=== PATIENT | female | born 1985 | race African-American/Black ===

== ENCOUNTER 2024-06-04 16:27 | Emergency (ER) | payer MEDICARE, OTHER ==
[2024-06-04 16:52] VITALS: TEMP 98
[2024-06-04] MEDS: KETOROLAC 15 MG/ML 1 ML VIAL IM STA (20:01)
[2024-06-04] MEDS: LIDOCAINE 1% INJ 10MG/ML (20 ML MDV) SQ ONE (20:02)
--- NOTE | 2024-06-04 20:35 | ED ---
General Adult HPI - General Chief complaint: Skin/Abscess/Foreign Body Stated complaint: Abbcess Time Seen by Provider: 06/04/24 18:12 Source: patient Mode of arrival: ambulatory Limitations: no limitations - History of Present Illness Initial comments: 38-year-old female presenting chief complaint of abscess to [facility]. She first noticed it about a week ago. Patient does have history of pilonidal abscesses. No fevers or chills. No nausea or vomiting. Abscess has not opened or drained yet. - Related Data Previous Rx's Medication Instructions Recorded Cephalexin [Keflex] 500 mg PO Q6HR 7 Days #28 cap 06/04/24 Sulfamethox-Tmp 800-160Mg [Bactrim 1 tab PO Q12HR 7 Days #14 tab 06/04/24 DS 800-160 mg] Allergies Allergy/AdvReac Type Severity Reaction Status Date / Time lisinopril Allergy Anaphylaxis Verified 06/04/24 16:53 Review of Systems ROS Statement: Those systems with pertinent positive or pertinent negative responses have been documented in the HPI. ROS Other: All systems not noted in ROS Statement are negative. Past Medical History Past Medical History: Diabetes Mellitus Additional Past Medical History / Comment(s): type 1 History of Any Multi-Drug Resistant Organisms: None Reported Additional Past Surgical History / Comment(s): gastric sleeve, abdominoplasty. Past Psychological History: No Psychological Hx Reported Smoking Status: Current every day smoker Past Alcohol Use History: None Reported Past Drug Use History: Marijuana General Exam Limitations: no limitations General appearance: alert, in no apparent distress Head exam: Present: atraumatic, normocephalic Eye exam: Present: normal appearance, EOMI Neck exam: Present: normal inspection. Absent: meningismus Respiratory exam: Absent: respiratory distress Neurological exam: Present: alert, oriented X3 Psychiatric exam: Present: normal affect, normal mood Expanded Type of lesion: Present: abscess (Pilonidal abscess) Course Vital Signs 06/04/24 06/04/24 16:50 20:44 Temperature 98 F Pulse Rate 107 H 96 Respiratory 18 16 Rate Blood Pressure 104/73 110/78 O2 Sat by Pulse 98 99 Oximetry Procedures - Incision & Drainage Consent Obtained: verbal consent Site: buttock Anesthetic Used: lidocaine 1%, without epi Scalpel Used: #11 I&D Drainage Obtained: Pus, Blood Patient Tolerated Procedure: well Medical Decision Making - Medical Decision Making Was pt. sent in by a medical professional or institution (CHARLES Escalante, HRIS ANALYST, urgent care, hospital, or assisted...) When possible be specific @ -No Did you speak to anyone other than the patient for history (EMS, parent, family, police, friend...)? What history was obtained from this source @ -No Did you review nursing and triage notes (agree or disagree)? Why? @ -I reviewed and agree with nursing and triage notes Were old charts reviewed (outside hosp., previous admission, EMS record, old EKG, old radiological studies, urgent care reports/EKG's, assisted records)? Report findings @ -No old charts were reviewed Differential Diagnosis (chest pain, altered mental status, abdominal pain women, abdominal pain men, vaginal bleeding, weakness, fever, dyspnea, syncope, headache, dizziness, GI bleed, back pain, seizure, CVA, palpatations, mental health, musculoskeletal)? @ -Differential includes abscess, cellulitis, allergic reaction, this is not an all-inclusive list EKG interpreted by me (3pts min.). @ -As above X-rays interpreted by me (1pt min.). @ -None done CT interpreted by me (1pt min.). @ -None done U/S interpreted by me (1pt. min.). @ -None done What testing was considered but not performed or refused? (CT, X-rays, U/S, labs)? Why? @ -None What meds were considered but not given or refused? Why? @ -None Did you discuss the management of the patient with other professionals (professionals i.e. CHARLES Escalante, HRIS ANALYST, lab, RT, psych nurse, licensed master social worker, umbrella tipper hand, teacher, founder and chief technical officer, high risk case manager)? Give summary @ -No Was smoking cessation discussed for >3mins.? @ -No Was critical care preformed (if so, how long)? @ -No Were there social determinants of health that impacted care today? How? (Homelessness, low income, unemployed, alcoholism, drug addiction, transportation, low edu. Level, literacy, decrease access to med. care, [facility], rehab)? @ -No Was there de-escalation of care discussed even if they declined (Discuss DNR or withdrawal of care, Hospice)? DNR status @ -No What co-morbidities impacted this encounter? (DM, HTN, Smoking, COPD, CAD, Cancer, CVA, ARF, Chemo, Hep., AIDS, mental health diagnosis, sleep apnea, morbid obesity)? @ -None Was patient admitted / discharged? Hospital course, mention meds given and rout e, prescriptions, significant lab abnormalities, going to OR and other pertinent info. @ -38-year-old female presenting with chief complaint of pilonidal abscess. The wound is anesthetized with 1% lidocaine. Incision and drainage is performed. Large amount of pus and blood expressed. Wound is covered with gauze. Patient is started on Keflex and Bactrim. She is educated on today's findings and wound care. Educated on signs of infection. Discharged. Follow- up with PCP. Report back to ER with any new or worsening symptoms. Discussed return parameters and answered all questions. Patient conveyed verbal understanding and agreed to the plan. I discussed this case in detail with my attending Dr. Wall Undiagnosed new problem with uncertain prognosis? @ -No Drug Therapy requiring intensive monitoring for toxicity (Heparin, Nitro, Insulin, Cardizem)? @ -No Were any procedures done? @ -Incision and drainage Diagnosis/symptom? @ -Abscess Acute, or Chronic, or Acute on Chronic? @ -Acute Uncomplicated (without systemic symptoms) or Complicated (systemic symptoms)? @ -Uncomplicated Side effects of treatment? @ -No Exacerbation, Progression, or Severe Exacerbation? @ -No Poses a threat to life or bodily function? How? (Chest pain, USA, MD, pneumonia, PE, COPD, DKA, ARF, appy, cholecystitis, CVA, Diverticulitis, Homicidal, Suicidal, threat to staff... and all critical care pts) @ -No Disposition Clinical Impression: Pilonidal abscess Disposition: HOME SELF-CARE Condition: Good Instructions (If sedation given, give patient instructions): Pilonidal Cyst (ED) Additional Instructions: Follow-up with PCP. Report back to ER with any new or worsening symptoms. Prescriptions: Sulfamethox-Tmp 800-160Mg [Bactrim DS 800-160 mg] 1 tab PO Q12HR 7 Days #14 tab Cephalexin [Keflex] 500 mg PO Q6HR 7 Days #28 cap Is patient prescribed a controlled substance at d/c from ED?: No Referrals: None,Stated [Primary Care Provider] - 1-2 days Time of Disposition: 20:35
[2024-06-04 20:45] VITALS: BP 110/78; PULSE 96; RESP 16
== END 2024-06-04 21:12 | disposition home or self-care (01) ==
LOC: EC 16:27
CPT/HCPCS: 10080; 96372; 99283

== ENCOUNTER 2024-09-02 10:34 | Inpatient (IN) | payer MEDICARE, MEDICAID ==
[2024-09-02] MEDS: HALOPERIDOL LACTATE 5 MG/ML 1 ML VIAL IM STA (10:43)
[2024-09-02] MEDS: LORazepam 2 MG/ML INJ IM STA (10:55)
[2024-09-02] MEDS: LORazepam 2 MG/ML INJ IV STA (11:09)
--- NOTE | 2024-09-02 11:10 | ED ---
Psych HPI - General Source: patient, police, RN notes reviewed, old records reviewed Mode of arrival: ambulatory Limitations: no limitations <Rene Robison - Last Filed: 09/02/24 16:11> - General Source: patient, police, RN notes reviewed, old records reviewed Mode of arrival: ambulatory Limitations: no limitations - History of Present Illness MD Complaint: altered mental status <Solomon Landeros - Last Filed: 09/02/24 19:47> - General Chief Complaint: Psychiatric Symptoms Stated Complaint: mental health Time Seen by Provider: 09/02/24 10:35 - History of Present Illness Initial Comments: 38-year-old female presents emergency department with police for psychiatric valuation. Patient was picked up on a court order pickup for not receiving her Haldol injection. Patient has underlying psychiatric issues in which it is unclear her official diagnosis she is very manic, belligerent yelling and unable to provide significant information is known that she has a diabetic per court order pickup she did not receive her injection noncompliant and was hypertensive unable to receive her injection. (Rene Robison) - Related Data Home Medications Medication Instructions Recorded Confirmed Finerenone [Kerendia] 10 mg PO DAILY 09/02/24 09/02/24 Furosemide [Lasix] 20 mg PO DAILY 09/02/24 09/02/24 Haloperidol Decanoate [Haldol D] 100 mg IM Q28D 09/02/24 09/02/24 Insulin Glargine,Hum.rec.anlog 10 units SQ DAILY 09/02/24 09/02/24 [Lantus Solostar Pen] Melatonin 3 mg PO HS PRN 09/02/24 09/02/24 Naproxen [EC-Naprosyn] 500 mg PO BID 09/02/24 09/02/24 amLODIPine [Norvasc] 5 mg PO DAILY 09/02/24 09/02/24 carBAMazepine 200 mg PO BID 09/02/24 09/02/24 glipiZIDE [Glucotrol] 5 mg PO AC-BID 09/02/24 09/02/24 Allergies Allergy/AdvReac Type Severity Reaction Status Date / Time lisinopril Allergy Anaphylaxis Verified 09/02/24 11:18 Review of Systems ROS Other: All systems not noted in ROS Statement are negative. <Rene Robison - Last Filed: 09/02/24 16:11> ROS Other: All systems not noted in ROS Statement are negative. <Solomon Landeros - Last Filed: 09/02/24 19:47> ROS Statement: Those systems with pertinent positive or pertinent negative responses have been documented in the HPI. Past Medical History Past Medical History: Diabetes Mellitus Additional Past Medical History / Comment(s): type 1 History of Any Multi-Drug Resistant Organisms: None Reported Additional Past Surgical History / Comment(s): gastric sleeve, abdominoplasty. Past Psychological History: No Psychological Hx Reported Smoking Status: Current every day smoker Past Alcohol Use History: None Reported Past Drug Use History: Marijuana <Rene Robison - Last Filed: 09/02/24 16:11> General Exam Limitations: no limitations Head exam: Present: atraumatic, normocephalic, normal inspection Eye exam: Present: normal appearance, PERRL, EOMI. Absent: scleral icterus, conjunctival injection, periorbital swelling ENT exam: Present: normal exam, mucous membranes moist Neck exam: Present: normal inspection. Absent: tenderness, meningismus, lymphadenopathy Respiratory exam: Present: normal lung sounds bilaterally. Absent: respiratory distress, wheezes, rales, rhonchi, stridor Cardiovascular Exam: Present: normal rhythm, tachycardia, normal heart sounds. Absent: systolic murmur, diastolic murmur, rubs, gallop, clicks GI/Abdominal exam: Present: soft, normal bowel sounds. Absent: distended, tenderness, guarding, rebound, rigid Neurological exam: Present: alert Psychiatric exam: Present: agitated, manic <Rene Robison - Last Filed: 09/02/24 16:11> Limitations: altered mental status, physical limitation General appearance: alert, in no apparent distress Head exam: Present: atraumatic, normocephalic, normal inspection Eye exam: Present: normal appearance, PERRL, EOMI. Absent: scleral icterus, conjunctival injection, periorbital swelling ENT exam: Present: normal exam, mucous membranes moist Neck exam: Present: normal inspection. Absent: tenderness, meningismus, lymphadenopathy Respiratory exam: Present: normal lung sounds bilaterally. Absent: respiratory distress, wheezes, rales, rhonchi, stridor Cardiovascular Exam: Present: regular rate, normal rhythm, normal heart sounds. Absent: systolic murmur, diastolic murmur, rubs, gallop, clicks GI/Abdominal exam: Present: soft, normal bowel sounds. Absent: distended, tenderness, guarding, rebound, rigid Extremities exam: Present: normal inspection, full ROM, normal capillary refill. Absent: tenderness, pedal edema, joint swelling, calf tenderness Back exam: Present: normal inspection Neurological exam: Present: alert, oriented X3, CN II-XII intact Psychiatric exam: Present: normal affect, normal mood Skin exam: Present: warm, dry, intact, normal color. Absent: rash <Solomon Landeros - Last Filed: 09/02/24 19:47> Course <Solomon Landeros - Last Filed: 09/02/24 19:47> Vital Signs 09/02/24 09/02/24 09/02/24 10:39 11:14 12:40 Temperature 98.8 F Pulse Rate 120 H 116 H 89 Respiratory 20 20 18 Rate Blood Pressure 199/123 158/109 142/105 O2 Sat by Pulse 98 98 100 Oximetry 09/02/24 09/02/24 09/02/24 13:56 14:22 15:00 Temperature Pulse Rate 97 76 96 Respiratory 18 18 20 Rate Blood Pressure 155/109 147/97 O2 Sat by Pulse 100 99 Oximetry 09/02/24 09/02/24 09/02/24 15:29 16:00 17:00 Temperature Pulse Rate 98 76 76 Respiratory 18 18 18 Rate Blood Pressure 115/81 142/115 O2 Sat by Pulse 98 97 Oximetry 09/02/24 09/02/24 17:57 18:29 Temperature Pulse Rate 76 76 Respiratory 18 18 Rate Blood Pressure 146/100 140/94 O2 Sat by Pulse 97 97 Oximetry - Reevaluation(s) Reevaluation #1: 09/02/24 Medical record is reviewed Medically clear for psychiatric evaluation (Solomon Landeros) Procedures - Restraint - Face to Face Restraint Occurrence 1 Patient's Immediate Situation: Endangers self safety, Endangers others' safety, Endangers staff safety Patient's Reaction to the Intervention: Uncooperative, Angry, Belligerent, Aggressive Patient's Medical & Behavioral Condition: Awake, Alert, Manic Need to Continue or Terminate Restraint or Seclusion: Continue Face to Face Eval of Restraint Date: 09/02/24 Face to Face Eval of Restraint Time: 10:42 <Rene Robison - Last Filed: 09/02/24 16:11> Medical Decision Making - Lab Data Result diagrams: 09/02/24 12:11 09/02/24 12:11 <Rene Robison - Last Filed: 09/02/24 16:11> - Lab Data Result diagrams: 09/02/24 12:11 09/02/24 12:11 <Solomon Landeros - Last Filed: 09/02/24 19:47> - Medical Decision Making Was pt. sent in by a medical professional or institution (, PA, PHYSICS TEACHER, urgent care, hospital, or correction...) When possible be specific @ -No Did you speak to anyone other than the patient for history (EMS, parent, family, police, friend...)? What history was obtained from this source @ -[Police who brought patient in regarding current patient condition and court order Did you review nursing and triage notes (agree or disagree)? Why? @ -I reviewed and agree with nursing and triage notes Were old charts reviewed (outside hosp., previous admission, EMS record, old EKG, old radiological studies, urgent care reports/EKG's, correction records)? Report findings @ -No old charts were reviewed Differential Diagnosis (chest pain, altered mental status, abdominal pain women, abdominal pain men, vaginal bleeding, weakness, fever, dyspnea, syncope, headache, dizziness, GI bleed, back pain, seizure, CVA, palpatations, mental health, musculoskeletal)? @ -Differential Mental Health Depression, anxiety, bipolar, psychosis, schizophrenia, borderline personality, situational depression, adjustment disorder, behavioral disorder, brain tumor, malingering, substance abuse, encephalopathy, medication reaction, dementia, hypothyroidism, degenerative neurologic disorder, lupus.... This is not meant to be all-inclusive list EKG interpreted by me (3pts min.). @ -[None X-rays interpreted by me (1pt min.). @ -None done CT interpreted by me (1pt min.). @ -None done U/S interpreted by me (1pt. min.). @ -None done What testing was considered but not performed or refused? (CT, X-rays, U/S, labs)? Why? @ -None What meds were considered but not given or refused? Why? @ -None Did you discuss the management of the patient with other professionals (professionals i.e. , PA, PHYSICS TEACHER, lab, RT, psych nurse, social services specialist, junior systems administrator, teacher, business development officer, correctional counselor/case manager)? Give summary @ -EPS evaluation recommends inpatient treatment Was smoking cessation discussed for >3mins.? @ -No Was critical care preformed (if so, how long)? @ -No Were there social determinants of health that impacted care today? How? (Homelessness, low income, unemployed, alcoholism, drug addiction, transportation, low edu. Level, literacy, decrease access to med. care, senior care, rehab)? @ -No Was there de-escalation of care discussed even if they declined (Discuss DNR or withdrawal of care, Hospice)? DNR status @ -No What co-morbidities impacted this encounter? (DM, HTN, Smoking, COPD, CAD, Cancer, CVA, ARF, Chemo, Hep., AIDS, mental health diagnosis, sleep apnea, morbid obesity)? @ -None Was patient admitted / discharged? Hospital course, mention meds given and route, prescriptions, significant lab abnormalities, going to OR and other pertinent info. @ -Admitted to 3 W. Undiagnosed new problem with uncertain prognosis? @ -No Drug Therapy requiring intensive monitoring for toxicity (Heparin, Nitro, Insulin, Cardizem)? @ -No Were any procedures done? @ -No Diagnosis/symptom? @ -Bipolar disorder, manic, psychosis Acute, or Chronic, or Acute on Chronic? @ -Acute Uncomplicated (without systemic symptoms) or Complicated (systemic symptoms)? @ -Complicated Side effects of treatment? @ -No Exacerbation, Progression, or Severe Exacerbation? @ -No Poses a threat to life or bodily function? How? (Chest pain, USA, PA, pneumonia, PE, COPD, DKA, ARF, appy, cholecystitis, CVA, Diverticulitis, Homicidal, Suicidal, threat to staff... and all critical care pts) @ -No (Rene Robison) 38 female will be admitted for transferring to inpatient psychiatric evaluation and treatment (Solomon Landeros) - Lab Data Lab Results 09/02/24 09/02/24 09/02/24 Range/Units 12:11 12:11 14:07 WBC 5.1 (3.8-10.6) k/uL RBC 4.04 (3.80-5.40) m/uL Hgb 11.2 L (11.4-16.0) gm/dL Hct 35.4 (34.0-46.0) % MCV 87.5 (80.0-100.0) fL MCH 27.7 (25.0-35.0) pg MCHC 31.6 (31.0-37.0) g/dL RDW 13.4 (11.5-15.5) % Plt Count 175 (150-450) k/uL MPV 9.1 Neutrophils % 63 % Lymphocytes % 28 % Monocytes % 6 % Eosinophils % 1 % Basophils % 0 % Neutrophils # 3.2 (1.3-7.7) k/uL Lymphocytes # 1.4 (1.0-4.8) k/uL Monocytes # 0.3 (0-1.0) k/uL Eosinophils # 0.1 (0-0.7) k/uL Basophils # 0.0 (0-0.2) k/uL Sodium 133 L (137-145) mmol/L Potassium 3.9 (3.5-5.1) mmol/L Chloride 107 (98-107) mmol/L Carbon Dioxide 20 L (22-30) mmol/L Anion Gap 6 mmol/L BUN 9 (7-17) mg/dL Creatinine 0.91 (0.52-1.04) mg/dL Est GFR (CKD-EPI)AfAm >90 (>60 ml/min/1.73 sqM) Est GFR (CKD-EPI)NonAf 80 (>60 ml/min/1.73 sqM) Glucose 247 H (74-99) mg/dL POC Glucose (mg/dL) (70-110) mg/dL POC Glu Correctional Food Service Supervisor ID Calcium 8.9 (8.4-10.2) mg/dL Total Bilirubin 0.3 (0.2-1.3) mg/dL AST 22 (14-36) U/L ALT 10 (4-34) U/L Alkaline Phosphatase 103 (38-126) U/L Total Protein 6.5 (6.3-8.2) g/dL Albumin 3.8 (3.5-5.0) g/dL Urine Opiates Screen Not Detected (NotDetected) Ur Oxycodone Screen Not Detected (NotDetected) Urine Methadone Screen Not Detected (NotDetected) Ur Barbiturates Screen Not Detected (NotDetected) U Tricyclic Antidepress Not Detected (NotDetected) Ur Phencyclidine Scrn Not Detected (NotDetected) Ur Amphetamines Screen Not Detected (NotDetected) U Methamphetamines Scrn Not Detected (NotDetected) U Benzodiazepines Scrn Detected H (NotDetected) Urine Cocaine Screen Not Detected (NotDetected) U Marijuana (THC) Screen Detected H (NotDetected) Serum Alcohol <10 mg/dL SARS-CoV-2 (PCR) (Not Detectd) 09/02/24 09/02/24 Range/Units 16:10 18:20 WBC (3.8-10.6) k/uL RBC (3.80-5.40) m/uL Hgb (11.4-16.0) gm/dL Hct (34.0-46.0) % MCV (80.0-100.0) fL MCH (25.0-35.0) pg MCHC (31.0-37.0) g/dL RDW (11.5-15.5) % Plt Count (150-450) k/uL MPV Neutrophils % % Lymphocytes % % Monocytes % % Eosinophils % % Basophils % % Neutrophils # (1.3-7.7) k/uL Lymphocytes # (1.0-4.8) k/uL Monocytes # (0-1.0) k/uL Eosinophils # (0-0.7) k/uL Basophils # (0-0.2) k/uL Sodium (137-145) mmol/L Potassium (3.5-5.1) mmol/L Chloride (98-107) mmol/L Carbon Dioxide (22-30) mmol/L Anion Gap mmol/L BUN (7-17) mg/dL Creatinine (0.52-1.04) mg/dL Est GFR (CKD-EPI)AfAm (>60 ml/min/1.73 sqM) Est GFR (CKD-EPI)NonAf (>60 ml/min/1.73 sqM) Glucose (74-99) mg/dL POC Glucose (mg/dL) 235 H (70-110) mg/dL POC Glu Correctional Food Service Supervisor ID Srinivasa Alvares Calcium (8.4-10.2) mg/dL Total Bilirubin (0.2-1.3) mg/dL AST (14-36) U/L ALT (4-34) U/L Alkaline Phosphatase (38-126) U/L Total Protein (6.3-8.2) g/dL Albumin (3.5-5.0) g/dL Urine Opiates Screen (NotDetected) Ur Oxycodone Screen (NotDetected) Urine Methadone Screen (NotDetected) Ur Barbiturates Screen (NotDetected) U Tricyclic Antidepress (NotDetected) Ur Phencyclidine Scrn (NotDetected) Ur Amphetamines Screen (NotDetected) U Methamphetamines Scrn (NotDetected) U Benzodiazepines Scrn (NotDetected) Urine Cocaine Screen (NotDetected) U Marijuana (THC) Screen (NotDetected) Serum Alcohol mg/dL SARS-CoV-2 (PCR) Not Detected (Not Detectd) Disposition Time of Disposition: 16:11 <Rene Robison - Last Filed: 09/02/24 16:11> Is patient prescribed a controlled substance at d/c from ED?: No <Solomon Landeros - Last Filed: 09/02/24 19:47> Clinical Impression: Bipolar disorder, Acute psychosis Disposition: TRANSFER TO PSYCH HOSP/UNIT Condition: Fair
[2024-09-02 12:25] LABS: Basophils % (A) 0 %; Eosinophils # (A) 0.1 k/uL (0-0.7); Eosinophils % (A) 1 %; HCT 35.4 % (34.0-46.0); HGB 11.2 gm/dL (11.4-16.0); Lymphocytes # (A) 1.4 k/uL (1.0-4.8); Lymphocytes % (A) 28 %; MCH 27.7 pg (25.0-35.0); MCHC 31.6 g/dL (31.0-37.0); MCV 87.5 fL (80.0-100.0); Mean Platelet Volume 9.1; Monocytes # (A) 0.3 k/uL (0-1.0); Monocytes % (A) 6 %; Neutrophils # (A) 3.2 k/uL (1.3-7.7); Neutrophils % (A) 63 %; Platelet Count 175 k/uL (150-450); RBC 4.04 m/uL (3.80-5.40); RDW 13.4 % (11.5-15.5); WBC 5.1 k/uL (3.8-10.6)
[2024-09-02 12:49] LABS: ALT 10 U/L (4-34); AST 22 U/L (14-36); African American GFR (CKD) >90 (>60 ml/min/1.73 sqM); Albumin 3.8 g/dL (3.5-5.0); Alcohol <10 mg/dL; Alkaline Phosphatase 103 U/L (38-126); Anion Gap 6 mmol/L; Blood Urea Nitrogen 9 mg/dL (7-17); Calcium 8.9 mg/dL (8.4-10.2); Carbon Dioxide 20 mmol/L (22-30); Chloride 107 mmol/L (98-107); Glucose 247 mg/dL (74-99); Non-African American GFR(CKD) 80 (>60 ml/min/1.73 sqM); Potassium 3.9 mmol/L (3.5-5.1); Sodium 133 mmol/L (137-145); Total Bilirubin 0.3 mg/dL (0.2-1.3); Total Protein 6.5 g/dL (6.3-8.2)
[2024-09-02 14:39] LABS: Amphetamine Screen,Urine Not Detected (NotDetected); Barbiturate Screen,Urine Not Detected (NotDetected); Benzodiazepines Screen,Urine Detected (NotDetected); Cocaine Screen,Urine Not Detected (NotDetected); Methadone Screen, Urine Not Detected (NotDetected); Opiate Screen,Urine Not Detected (NotDetected); Oxycodone Screen, Urine Not Detected (NotDetected); Phencyclidine Screen,Urine Not Detected (NotDetected); Tricyclic Antidepressant,Urine Not Detected (NotDetected); Urn Cannabinoid Scrn Detected (NotDetected)
[2024-09-02] MEDS: LABETALOL 5 MG/ML VIAL MDV IVP STA (15:30)
[2024-09-02] MEDS: ACETAMINOPHEN TAB 500 MG TAB PO STA (18:09)
[2024-09-02] MEDS: NAPROXEN 250 MG TAB PO STA (18:09)
[2024-09-02 18:22] LABS: Glucose,Whole Blood 235 mg/dL (70-110)
[2024-09-02] MEDS ORDERED: IBUPROFEN 600 MG TAB PO PRN (19:23)
[2024-09-02] MEDS ORDERED: MAGNESIUM HYDROXIDE 2,400 MG/30 ML CUP PO PRN (19:23)
[2024-09-02] MEDS ORDERED: haloperidoL 5 MG TAB PO PRN (19:29)
[2024-09-02] MEDS ORDERED: HALOPERIDOL LACTATE 5 MG/ML 1 ML VIAL IM PRN (19:29)
[2024-09-02] MEDS ORDERED: LORazepam 1 MG TAB PO PRN (19:29)
[2024-09-02] MEDS ORDERED: LORazepam 2 MG/ML INJ IM PRN (19:29)
[2024-09-02 20:32] LABS: Appearance,Urine Clear (Clear); Bilirubin,Urine Negative (Negative); Blood,Urine Negative (Negative); Color,Urine Colorless; Glucose,Urine (UA) 4+ (Negative); Ketones,Urine 1+ (Negative); Leukocyte Esterase,Urine Negative (Negative); Nitrite,Urine Negative (Negative); PH, Urine 5.5 (5.0-8.0); Protein,Urine Trace (Negative); Specific Gravity,Urine 1.009 (1.001-1.035); Urobilinogen,Urine <2.0 mg/dL (<2.0)
[2024-09-03] MEDS: ACETAMINOPHEN TAB 325 MG TAB PO PRN (01:49)
--- NOTE | 2024-09-03 03:06 | P.CONS ---
History of Present Illness - Reason for Consult Consult date: 09/03/24 - History of Present Illness The patient is a 38-year-old female with a PMH of polysubstance abuse who was brought into the emergency room under police custody for refusing her Haldol injections. The patient had reportedly been belligerent and manic and was admitted to the mental health unit where she was seen and evaluated while accompanied by an MHU RN. The patient reports that she has a longstanding history of type 1 diabetes and continues to smoke half pack of cigarettes daily. She denies alcohol or additional substance use. Denied any additional complaints. Denied experiencing chest discomfort, shortness of, fever, chills, cough, nausea, vomiting, abdominal pain, diarrhea. Does report recreational marijuana use. Review of systems: Pertinent positives and negatives as discussed in HPI, a complete review of systems was performed and all other systems are negative. Physical examination: General: non toxic, no distress, appears at stated age, overweight Derm: no unusual rashes/lesions, no unusual ecchymoses, warm, dry Head: atraumatic, normocephalic, symmetric Eyes: EOMI, no lid lag, anicteric sclera ENT: Nose and ears atraumatic, no thrush, no pharyngeal erythema Neck: trachea midline, supple Mouth: no lip lesion, mucus membranes moist Cardiovascular: S1S2 reg, no murmur, no edema Lungs: CTA bilateral, no rhonchi, no rales , no accessory muscle use Abdominal: soft, nontender to palpation, no guarding Ext: no gross muscle atrophy, no contractures, Neuro: No gross focal neuro deficits noted Psych: Alert, oriented, appropriate affect Assessment: Type 1 diabetes mellitus Marijuana abuse Hyponatremia Psychosis Imaging: None performed Data Review: Reviewed with WBC count 5.1, hemoglobin 11.2, sodium 133, CO2 20, glucose 247, with urine toxicology positive for marijuana and benzodiazepines Plan: Resume patient's home meds glipizide and Levemir 10 units daily Insulin sliding scale blood glucose monitoring Advised on importance of cessation from marijuana use Defer management of psychosis to primary psychiatry service Thank you for allowing us to participate in the care of this patient. We will follow peripherally. Do not hesitate to contact us with questions. Someone can be reached from the [facility] hospitalist group at all hours of the day at [phone]. Past Medical History Past Medical History: Diabetes Mellitus Additional Past Medical History / Comment(s): type 1 History of Any Multi-Drug Resistant Organisms: None Reported Additional Past Surgical History / Comment(s): gastric sleeve, abdominoplasty. Past Anesthesia/Blood Transfusion Reactions: No Reported Reaction Smoking Status: Current every day smoker - Past Family History Mother History Unknown: Yes Medications and Allergies Home Medications Medication Instructions Recorded Confirmed Type Finerenone [Kerendia] 10 mg PO DAILY 09/02/24 09/02/24 History Furosemide [Lasix] 20 mg PO DAILY 09/02/24 09/02/24 History Haloperidol Decanoate [Haldol D] 100 mg IM Q28D 09/02/24 09/02/24 History Insulin Glargine,Hum.rec.anlog 10 units SQ DAILY 09/02/24 09/02/24 History [Lantus Solostar Pen] Melatonin 3 mg PO HS PRN 09/02/24 09/02/24 History Naproxen [EC-Naprosyn] 500 mg PO BID 09/02/24 09/02/24 History amLODIPine [Norvasc] 5 mg PO DAILY 09/02/24 09/02/24 History carBAMazepine 200 mg PO BID 09/02/24 09/02/24 History glipiZIDE [Glucotrol] 5 mg PO AC-BID 09/02/24 09/02/24 History Allergies Allergy/AdvReac Type Severity Reaction Status Date / Time lisinopril Allergy Anaphylaxis Verified 09/02/24 11:18 Physical Exam Vitals: Vital Signs Temp Pulse Pulse Resp BP BP Pulse Ox 09/02/24 21:54 98.0 F 103 H 16 138/93 98 09/02/24 20:33 98.2 F 84 18 148/88 99 09/02/24 18:29 76 18 140/94 97 09/02/24 17:57 76 18 146/100 97 09/02/24 17:00 76 18 09/02/24 16:00 76 18 142/115 97 09/02/24 15:29 98 18 115/81 98 09/02/24 15:00 96 20 99 09/02/24 14:22 76 18 147/97 09/02/24 13:56 97 18 155/109 100 09/02/24 12:40 89 18 142/105 100 09/02/24 11:14 116 H 20 158/109 98 09/02/24 10:39 98.8 F 120 H 20 199/123 98 Intake and Output 09/02/24 09/02/24 09/03/24 14:59 22:59 06:59 Other: Weight 72.575 kg 72.717 kg Results CBC & Chem 7: 09/02/24 12:11 09/02/24 12:11 Labs: Abnormal Lab Results - Last 24 Hours (Table) 09/02/24 09/02/24 09/02/24 Range/Units 12:11 12:11 14:07 Hgb 11.2 L (11.4-16.0) gm/dL Sodium 133 L (137-145) mmol/L Carbon Dioxide 20 L (22-30) mmol/L Glucose 247 H (74-99) mg/dL POC Glucose (mg/dL) (70-110) mg/dL Urine Protein (Negative) Urine Glucose (UA) (Negative) Urine Ketones (Negative) U Benzodiazepines Scrn Detected H (NotDetected) U Marijuana (THC) Screen Detected H (NotDetected) 09/02/24 09/02/24 Range/Units 18:20 19:26 Hgb (11.4-16.0) gm/dL Sodium (137-145) mmol/L Carbon Dioxide (22-30) mmol/L Glucose (74-99) mg/dL POC Glucose (mg/dL) 235 H (70-110) mg/dL Urine Protein Trace H (Negative) Urine Glucose (UA) 4+ H (Negative) Urine Ketones 1+ H (Negative) U Benzodiazepines Scrn (NotDetected) U Marijuana (THC) Screen (NotDetected)
[2024-09-03 07:54] LABS: Glucose,Whole Blood 217 mg/dL (70-110)
[2024-09-03] MEDS: amLODIPine 5 MG TAB PO SCH (09:41)
[2024-09-03] MEDS: glipiZIDE 5 MG TAB PO SCH (09:41)
[2024-09-03] MEDS: FUROSEMIDE 20 MG TAB PO SCH (09:43)
[2024-09-03] MEDS: INSULIN DETEMIR (LEVEMIR) 100 UNIT/ML SYR SQ SCH (09:44)
[2024-09-03] MEDS: NICOTINE 14MG/24HR PATCH TRANSDERM SCH (09:44)
--- NOTE | 2024-09-03 12:49 | P.HP ---
Psychiatric H&P - . H&P Date: 09/03/24 History & Physical: Allergies Allergy/AdvReac Type Severity Reaction Status Date / Time codeine Allergy Itching Verified 09/03/24 10:00 lisinopril Allergy Anaphylaxis Verified 09/03/24 09:52 insulin detemir AdvReac Unknown Verified 09/03/24 10:00 From Levemir U-100 Insulin Penicillins AdvReac Diarrhea Verified 09/03/24 10:00 Vital Signs Temp 96.7 F L 09/03/24 07:04 Pulse 102 H 09/03/24 11:33 Resp 18 09/03/24 09:47 BP 145/91 09/03/24 11:33 Pulse Ox 100 09/03/24 07:04 FiO2 Intake & Output 09/02/24 09/03/24 09/03/24 18:59 06:59 18:59 Weight 72.575 kg 72.717 kg Laboratory Last Values WBC 5.1 k/uL (3.8-10.6) 09/02/24 12:11 RBC 4.04 m/uL (3.80-5.40) 09/02/24 12:11 Hgb 11.2 gm/dL (11.4-16.0) L 09/02/24 12:11 Hct 35.4 % (34.0-46.0) 09/02/24 12:11 MCV 87.5 fL (80.0-100.0) 09/02/24 12:11 MCH 27.7 pg (25.0-35.0) 09/02/24 12:11 MCHC 31.6 g/dL (31.0-37.0) 09/02/24 12:11 RDW 13.4 % (11.5-15.5) 09/02/24 12:11 Plt Count 175 k/uL (150-450) 09/02/24 12:11 MPV 9.1 09/02/24 12:11 Neutrophils % 63 % 09/02/24 12:11 Lymphocytes % 28 % 09/02/24 12:11 Monocytes % 6 % 09/02/24 12:11 Eosinophils % 1 % 09/02/24 12:11 Basophils % 0 % 09/02/24 12:11 Neutrophils # 3.2 k/uL (1.3-7.7) 09/02/24 12:11 Lymphocytes # 1.4 k/uL (1.0-4.8) 09/02/24 12:11 Monocytes # 0.3 k/uL (0-1.0) 09/02/24 12:11 Eosinophils # 0.1 k/uL (0-0.7) 09/02/24 12:11 Basophils # 0.0 k/uL (0-0.2) 09/02/24 12:11 Sodium 133 mmol/L (137-145) L 09/02/24 12:11 Potassium 3.9 mmol/L (3.5-5.1) 09/02/24 12:11 Chloride 107 mmol/L (98-107) 09/02/24 12:11 Carbon Dioxide 20 mmol/L (22-30) L 09/02/24 12:11 Anion Gap 6 mmol/L 09/02/24 12:11 BUN 9 mg/dL (7-17) 09/02/24 12:11 Creatinine 0.91 mg/dL (0.52-1.04) 09/02/24 12:11 Est GFR (CKD-EPI)AfAm >90 (>60 ml/min/1.73 sqM) 09/02/24 12:11 Est GFR (CKD-EPI)NonAf 80 (>60 ml/min/1.73 sqM) 09/02/24 12:11 Glucose 247 mg/dL (74-99) H 09/02/24 12:11 POC Glucose (mg/dL) 217 mg/dL (70-110) H 09/03/24 07:53 POC Glu Field Investigator PATRICE Jeaneth Jones 09/03/24 07:[address] Glu mg/dL 286 mg/dL 09/03/24 07:36 Hemoglobin A1c 11.6 % (<=6.0) H 09/03/24 07:36 Calcium 8.9 mg/dL (8.4-10.2) 09/02/24 12:11 Total Bilirubin 0.3 mg/dL (0.2-1.3) 09/02/24 12:11 AST 22 U/L (14-36) 09/02/24 12:11 ALT 10 U/L (4-34) 09/02/24 12:11 Alkaline Phosphatase 103 U/L (38-126) 09/02/24 12:11 Total Protein 6.5 g/dL (6.3-8.2) 09/02/24 12:11 Albumin 3.8 g/dL (3.5-5.0) 09/02/24 12:11 TSH 1.210 mIU/L (0.465-4.680) 09/03/24 07:36 Urine Color Colorless 09/02/24 19: Urine Appearance Clear (Clear) 09/02/24 19: Urine pH 5.5 (5.0-8.0) 09/02/24 19:26 Ur Specific [place] 1.009 (1.001-1.035) 09/02/24 19:26 Urine Protein Trace (Negative) H 09/02/24 19: Urine Glucose (UA) 4+ (Negative) H 09/02/24 19: Urine Ketones 1+ (Negative) H 09/02/24 19:26 Urine Blood Negative (Negative) 09/02/24 19: Urine Nitrite Negative (Negative) 09/02/24 19: Urine Bilirubin Negative (Negative) 09/02/24 19:26 Urine Urobilinogen <2.0 mg/dL (<2.0) 09/02/24 19:26 Ur Leukocyte Esterase Negative (Negative) 09/02/24 19:26 Urine HCG, Qual Not Detected (Not Detectd) 09/02/24 19:26 Urine Opiates Screen Not Detected (NotDetected) 09/02/24 14:07 Ur Oxycodone Screen Not Detected (NotDetected) 09/02/24 14:07 Urine Methadone Screen Not Detected (NotDetected) 09/02/24 14:07 Ur Barbiturates Screen Not Detected (NotDetected) 09/02/24 14:07 U Tricyclic Antidepress Not Detected (NotDetected) 09/02/24 14:07 Ur Phencyclidine Scrn Not Detected (NotDetected) 09/02/24 14:07 Ur Amphetamines Screen Not Detected (NotDetected) 09/02/24 14:07 U Methamphetamines Scrn Not Detected (NotDetected) 09/02/24 14:07 U Benzodiazepines Scrn Detected (NotDetected) H 09/02/24 14:07 Urine Cocaine Screen Not Detected (NotDetected) 09/02/24 14:07 U Marijuana (THC) Screen Detected (NotDetected) H 09/02/24 14:07 Serum Alcohol <10 mg/dL 09/02/24 12:11 SARS-CoV-2 (PCR) Not Detected (Not Detectd) 09/02/24 16:10 09/03/24 12:29 IDENTIFYING DATA: Patient is a 38-year-old single female, currently living with sister who is exploring guardianship CHIEF COMPLAINT: Noncompliant with medications HPI: Patient presented to the hospital with delusional thoughts and disorganization. EPS note states, "Pt was brought in by police. Pt was non complaint with her treatment and medications. Pt is on an active order until 01/10/25. Pt was supposed to get her Haldol IM injection but her BP was too high and she refused to seek treatment for BP. [facility] reached out and she was "tangential, scattered and agitates". Atul family expressed to [facility] their concern for pt d/t her irritation, agitation, and delusions. Pt is not caring for her health or safety. Police and [facility] were contacted to see pt at her home this morning, 09/02 and during that time she was aggressive with police and making delusional statements about "Taoist juices" and she was trying to expose herself to [facility] staff. Pt was not making sense and irritable. [facility] recommended inpatient treatment. Pt was restrainted in the ER upon admission and was medicated. Pts BP was being monitored and brought down prior to assessment. Pt was tired and not willing to answer all of this RN's questions. She denies SI, HI. Pt was saying that she never seen [facility] today and that she is here for renal failure and her iron is low. Pt was vague and irritable. Pt does not have insight into her mental health. Pt is a current risk to self and others. When asked about drugs or etoh pt would not answer. Pts bal <10. UDS + benzos and mj". Patient seen and evaluated on the unit and was agreeable with speaking to repairer typewriter in office. She of note was very disorganized and tangential during conversation, poor historian. She states she lives with her sister however her sister will be leaving soon and so she needs to be discharged so she can return with her. She states her father was the one who brought her to the hospital however was unaware of the reasons why. She was able to state that she is on a court order with an expiration date for December 2024 and that she must take the Haldol injections. She states her blood pressure was elevated so she was unable to take it however she states she did receive a Haldol shot yesterday in the ED, per chart review this was Haldol 5 IM. There is evidence of flight of ideas, disorganized and illogical thoughts. Patient states she works nights and is often up with God, seeing the stars. Patient then states she is suffering from for body arthritis pain. Patient states she has been able to speak her mind with [facility] finally and she was aware of the medications she was taking, fixated on her current medications. Patient labile during interview, as she will go from crying to being upset but is redirectable. Patient denies any suicidal or homicidal ideations intent or plan. At this time patient denies any auditory or visual hallucinations. Patient was agreeable with getting Haldol decanoate shot today with restarting Tegretol for mood stabilization. PAST PSYCHIATRIC HISTORY: Patient has a history of schizophrenia. She is currently prescribed Tegretol 200 mg twice daily, Haldol decanoate 100 mg IM every 4 weeks, last given on 07/27/2024. Patient reports having "several" inpatient hospitalizations, most recent at [facility] in [place] back in June 2024. Patient follows with [facility]. Patient denies any history of suicide attempts in the past. PMH: as per ER note ALLERGIES: as per EMR SUBSTANCE USE HISTORY: UDS positive for benzodiazepines and cannabis FAMILY PSYCHIATRIC/SUBSTANCE USE HISTORY: Denies SOCIAL HISTORY: Patient was born and raised in [place]. She has no kids, is single and currently living with sister. MENTAL STATUS EXAM: General Appearance: Patient appears to be stated age is alert, however requires frequent redirection but is largely cooperative. Patient appears to have poor hygiene and grooming. Behavior: There is evidence of psychomotor restlessness. Patient intermittently tearful Speech: Patient's speech is talkative, and loud volume Mood/Affect: Patient reports their mood is "upset", affect is congruent and labile Suicidality/Homicidality: Patient denies having any homicidal ideation intent or plan. Denies any suicidal ideations intent or plan Perceptions: Patient denies any visual hallucinations and denies any auditory hallucinations Though content/process: Patient is tangential with flight of ideas and disorganized thoughts Memory and concentration: AOX3, grossly intact for the purposes of this session. Can spell "WORLD" backwards Judgment and insight: Poor STRENGTHS/WEAKNESSES: strength is that patient is resilient and has family support. Weakness is that patient has poor judgment and is impulsive INTELLECT: Average IMPRESSIONS: Schizophrenia Cannabis use disorder PLAN: -Patient is admitted under involuntary status to MHU for stabilization of psychiatric symptoms and safety. Patient has not signed adult voluntary form and medication consent and is placed in patient's chart. Patient currently on a court order with an expiration date for 01/10/2025 -Medications : Patient to be given Haldol decanoate 100 mg IM today, restart Tegretol at 200 mg twice daily (level ordered and pending given the reported history of nonadherence) -Ativan and Haldol PRN for agitation/aggression -Patient was counselled on substance abuse and desired to cut back on use -Patient was informed of the risks, benefits and side effects of the medication and patient verbally consented to taking the medications. Patient signed med consent form and was placed in chart. -Internal Medicine consult to perform medical evaluation and physical. -NRT -not needed as patient does not smoke -SW on board for discharge planning. Encourage patient to participate in groups to work on coping skills. Anticipate discharge back home with sister early next week pending stabilization in mood and psychosis
[2024-09-03 13:12] LABS: Glucose,Whole Blood 288 mg/dL (70-110)
[2024-09-03] MEDS: HALOPERIDOL DECANOATE 100 MG/ML 1 ML VIAL IM ONE (13:51)
[2024-09-03 17:42] LABS: Glucose,Whole Blood 418 mg/dL (70-110)
[2024-09-03] MEDS: LANTUS SQ SCH (17:45)
[2024-09-03] MEDS ORDERED: DEXTROSE 50% SYRINGE 50 ML IVP PRN ×2 (18:56)
[2024-09-03 19:27] LABS: Carbamazepine (Tegretol) 2.5 UG/ML (4.0-12.0)
[2024-09-03] MEDS: carBAMazepine 200 MG TAB PO SCH (20:11)
[2024-09-03 20:34] LABS: Glucose,Whole Blood 212 mg/dL (70-110)
[2024-09-03] MEDS: INSULIN ASPART (NovoLOG) 100 UNIT/ML VIAL SQ SCH (21:02)
[2024-09-03] MEDS: diphenhydrAMINE 25 MG CAP PO STA (22:04)
[2024-09-03] MEDS: NAPROXEN 250 MG TAB PO STA (22:05)
[2024-09-04 01:17] LABS: Glucose,Whole Blood 204 mg/dL (70-110)
[2024-09-04 03:52] LABS: Glucose,Whole Blood 159 mg/dL (70-110)
[2024-09-04 06:42] VITALS: RESP 16
[2024-09-04 07:52] LABS: Glucose,Whole Blood 177 mg/dL (70-110)
[2024-09-04] MEDS: NAPROXEN 250 MG TAB PO SCH (11:35)
[2024-09-04 12:32] VITALS: BMI 29.3
[2024-09-04 12:46] LABS: Glucose,Whole Blood 230 mg/dL (70-110)
[2024-09-04] MEDS: MAG HYDROX/AL HYDROX/SIMETH 355 ML BOTTLE PO PRN (16:39)
[2024-09-04] MEDS: LORATADINE 10 MG TAB PO SCH (17:54)
[2024-09-04] MEDS: LANTUS SOLOSTAR SQ SCH (17:55)
[2024-09-04 18:04] LABS: Glucose,Whole Blood 189 mg/dL (70-110)
--- NOTE | 2024-09-04 19:02 | P.PN ---
Progress Note - Text Interval History: Patient was seen resting in bed and was directable and agreeable to speak with software writer in the office. [He described her mood as "irritable" and shared her frustrations with having been brought to the hospital because she missed her injection despite having attempted to get her injection on time but being turned away due to hypertension. She explained that she has been lactating and is concerned about why this is occurring. We discussed that it can be a side effect of Haldol and other antipsychotics; she reports this first began about a year ago when she was started on the Haldol decanoate. In addition she shared that she has been doing her best to manage her other chronic medical problems but finds this difficult at times due to challenges with transportation and issues arranging rides via Medicaid. She often relies on her dad to help her get around and notes that some of her specialists are in various parts of the city which makes things challenging. At this time patient denies any suicidal or homical ideations, intent or plan. Patient denies any auditory, visual hallucinations and denies any paranoia or delusions. Patient has been compliant with meds. Mental Status Exam: General Appearance: Patient appears to be stated age is alert, directable, and cooperative. Behavior: Patient is calmly seated without any agitated behavior. Speech: Patient's speech is fluent and nonpressured. Conversational tone and volume. Mood/Affect: Mood is "irritable", affect is congruent and constricted. Suicidality/Homicidality: Patient denies having any suicidal or homicidal ideation intent or plan. Perceptions: Patient denies any visual hallucinations and denies any auditory hallucinations Though content/process: There is no overt evidence of any delusional thought content and thought process is mostly linear and generally goal-directed, mildly tangential at times. No inappropriate laughter. Memory and concentration: AOX3, grossly intact for the purposes of this session Judgment and insight: Fair IMPRESSIONS: Schizophrenia Cannabis use disorder PLAN: - Patient is admitted under involuntary status to MHU for stabilization of psychiatric symptoms and safety. Patient has not signed adult voluntary form and medication consent and is placed in patient's chart. Patient currently on a court order with an expiration date for 01/10/2025 - Medications : - Received Haldol decanoate 100 mg IM on 09/03/24 - Continue Tegretol at 200 mg twice daily (Level on 09/03 was 2.5) - Will order serum prolactin to investigate galactorrhea; may need outpatient Endocrine appt. to follow-up (patient already sees Endo for Diabetes management) - Placed RN order to allow patient to have warm compresses to help decrease discomfort from - Ativan and Haldol PRN for agitation/aggression - Patient was counselled on substance abuse and desired to cut back on use - NRT -not needed as patient does not smoke - SW on board for discharge planning. Encourage patient to participate in groups to work on coping skills. Anticipate discharge back home with sister early next week pending stabilization in mood and psychosis
[2024-09-04 20:24] LABS: Glucose,Whole Blood 149 mg/dL (70-110)
[2024-09-04] MEDS: MELATONIN 3 MG TABLET PO PRN (21:33)
[2024-09-05 07:53] LABS: Glucose,Whole Blood 129 mg/dL (70-110)
[2024-09-05 12:43] LABS: Glucose,Whole Blood 239 mg/dL (70-110)
[2024-09-05] MEDS ORDERED: SALINE NASAL GEL 14.1 GM TUBE NASAL PRN (14:30)
--- NOTE | 2024-09-05 14:30 | P.PN ---
Progress Note - Text Interval History: Patient was seen resting in bed and was directable and agreeable to speak with ad writer in the office. She describes her mood as "up and down" today. She was happy to change rooms last evening because her current room is a bit warmer which is more comfortable for her. She did have difficulty sleeping overnight and requested having a low-dose of trazodone available in the event she struggles to sleep again tonight. She continues to lactate; her prolactin level was drawn this morning. Explained that these results will likely be shared with her outpatient college admissions counselor who may determine whether additional follow-up is needed. She is hopeful to get out of the hospital sooner than later; and shared her desire to get a part-time job as a means of keeping herself busy and giving her something to focus on. 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 She denies experiencing auditory or visual hallucinations. She denies receiving any supplemental messages through radio, TV or other sources. At this time patient denies any suicidal or homicidal ideations, intent or plan. Patient has been compliant with meds. Mental Status Exam: General Appearance: Patient appears to be stated age is alert, directable, and cooperative. Behavior: Patient is calmly seated without any agitated behavior. Pleasant. Speech: Patient's speech is fluent and nonpressured. Conversational tone and volume. Mood/Affect: Mood is "up and down", affect is congruent and constricted. Suicidality/Homicidality: Patient denies having any suicidal or homicidal ideation intent or plan. Perceptions: Patient denies any visual hallucinations and denies any auditory hallucinations Though content/process: There is no overt evidence of any delusional thought content and thought process is mostly linear and generally goal-directed, though mildly tangential at times. No inappropriate laughter. Memory and concentration: AOX3, grossly intact for the purposes of this session Judgment and insight: Fair, improving mildly IMPRESSIONS: Schizophrenia Cannabis use disorder PLAN: - Patient is admitted under involuntary status to MHU for stabilization of psychiatric symptoms and safety. Patient has not signed adult voluntary form and medication consent and is placed in patient's chart. Patient currently on a court order with an expiration date for 01/10/2025 - Medications : - Received Haldol decanoate 100 mg IM on 09/03/24 - Continue Tegretol at 200 mg twice daily (Level on 09/03 was 2.5) - Adding Trazodone 50 mg PRN insomnia at patient's request due to poor sleep last night - Labs: Serum prolactin pending; may need outpatient Endocrine appt. to follow- up (patient already sees Endo for Diabetes management) - Placed RN order to allow patient to have warm compresses to help decrease discomfort from - Ativan and Haldol PRN for agitation/aggression - Patient was counselled on substance abuse and desired to cut back on use - NRT -not needed as patient does not smoke - SW on board for discharge planning. Encourage patient to participate in groups to work on coping skills. Anticipate discharge back home with sister early next week pending stabilization in mood and psychosis
[2024-09-05 15:31] LABS: Glucose,Whole Blood 66 mg/dL (70-110)
[2024-09-05 15:53] LABS: Glucose,Whole Blood 186 mg/dL (70-110)
[2024-09-05 17:40] LABS: Glucose,Whole Blood 167 mg/dL (70-110)
[2024-09-05 20:09] LABS: Glucose,Whole Blood 210 mg/dL (70-110)
[2024-09-05] MEDS: traZODone HCL 50 MG TAB PO PRN (20:18)
[2024-09-05 23:17] LABS: Glucose,Whole Blood 52 mg/dL (70-110)
[2024-09-05 23:33] LABS: Glucose,Whole Blood 107 mg/dL (70-110)
[2024-09-06 07:58] LABS: Glucose,Whole Blood 173 mg/dL (70-110)
[2024-09-06] MEDS: ARIPiprazole 5 MG TAB PO SCH (12:30)
--- NOTE | 2024-09-06 12:38 | P.PN ---
Progress Note - Text Progress Note Date: 09/06/24 Interval History: Patient was seen wandering the hallways and was directable and agreeable to sp german with writer technical publications in the office. Patient notably appears more calm, less disorganized today than previous encounter. She reports feeling tired due to issues with her blood sugar overnight. Patient was fixated on her regimen for diabetes management as she states her mother previously from complications related to diabetes. Patient is now compliant with her insulin. She states speaking to her sister and that she would likely be discharged back home with her. Patient's prolactin level returned back elevated today and patient was agreeable with starting Abilify to counter the side effects from medications. She is reporting breast fullness and pain however denies any nipple discharge. At this time patient denies any suicidal or homicidal ideations, intent or plan. Patient denies any auditory, visual hallucinations and denies any paranoia or delusions. Patient denies any side effects from the medications and has been compliant with meds. Mental Status Exam: General Appearance: Patient appears to be stated age is alert, directable, and cooperative. Behavior: Patient is calmly seated without any agitated behavior. Speech: Patient's speech is fluent and nonpressured. Mood/Affect: Mood is improving mildly, affect is congruent and constricted. Suicidality/Homicidality: Patient denies having any suicidal or homicidal ideation intent or plan. Perceptions: Patient denies any visual hallucinations and denies any auditory hallucinations Though content/process: Disorganization in thoughts significantly improved however patient is still tangential intermittently but redirectable. There are no delusional thoughts expressed Memory and concentration: AOX3, grossly intact for the purposes of this session Judgment and insight: Improving mildly Assessment Schizophrenia Cannabis use disorder Hyperprolactinemia Plan: -Patient continues to meet criteria for inpatient psychiatric admission for symptom stabilization and safety. Patient has not signed adult voluntary form an d medication consent and was placed in patient's chart. -Medications: Haldol decanoate 100 mg IM every 4 weeks, last given on 09/03/2024 and next due on 10/01/2024, Tegretol 200 mg twice daily for mood stabilization, increase trazodone to 100 mg at bedtime for insomnia, add Abilify 2.5 mg daily for elevated prolactin -When necessary Ativan and Haldol for agitation/aggression. -Labs: Prolactin elevated at 40 -SW on board for discharge planning. Encouraged the patient to participate in milieu. Anticipate discharge back home with sister on Friday
[2024-09-06 12:39] LABS: Glucose,Whole Blood 203 mg/dL (70-110)
[2024-09-06 17:41] LABS: Glucose,Whole Blood 255 mg/dL (70-110)
[2024-09-06 19:50] LABS: Glucose,Whole Blood 160 mg/dL (70-110)
[2024-09-06] MEDS: diphenhydrAMINE 25 MG CAP PO PRN (20:41)
[2024-09-06] MEDS: traZODone HCL 100 MG TAB PO SCH (20:42)
[2024-09-07 07:58] LABS: Glucose,Whole Blood 175 mg/dL (70-110)
--- NOTE | 2024-09-07 11:41 | P.PN ---
Progress Note - Text Progress Note Date: 09/07/24 Interval History: Patient was seen in her room and was directable and agreeable to speak with wr iter in the office. She states sleeping better today, stating she slept 7 hours overnight however staff noted 4 hours with as needed melatonin. Patient has been attending groups and tending to her ADLs. She is notably less tangential during interview. Patient expressed concerns with potential side effects with being started on the Abilify however psychoeducation was provided on the reasoning for starting this medication in the low-dose range for this medication. She states she has spoken to her sister and that she will likely return home with her however she is unsure if she will be able to give her a ride. At this time patient denies any suicidal or homicidal ideations, intent or plan. Patient denies any auditory, visual hallucinations and denies any paranoia or delusions. Patient denies any side effects from the medications and has been compliant with meds. Mental Status Exam: General Appearance: Patient appears to be stated age is alert, directable, and cooperative. Behavior: Patient is calmly seated without any agitated behavior. Speech: Patient's speech is fluent and nonpressured. Mood/Affect: Mood is improving mildly, affect is congruent and constricted. Suicidality/Homicidality: Patient denies having any suicidal or homicidal ideation intent or plan. Perceptions: Patient denies any visual hallucinations and denies any auditory hallucinations Though content/process: There is no evidence of any delusional thought content and thought process is linear and goal-directed superficially. Memory and concentration: AOX3, grossly intact for the purposes of this session Judgment and insight: Improving mildly Assessment Schizophrenia Cannabis use disorder Hyperprolactinemia Plan: -Patient continues to meet criteria for inpatient psychiatric admission for symptom stabilization and safety. Patient has not signed adult voluntary form and medication consent and was placed in patient's chart. Patient court ordered with next Friday for 12/2024 -Medications: Haldol decanoate 100 mg IM every 4 weeks, last given on 09/03/24 and next due on 10/01/2024, continue Tegretol 200 mg twice daily for mood stabilization, trazodone 100 mg at bedtime for insomnia, Abilify 2.5 mg daily for hyperprolactinemia and add melatonin 6 mg at bedtime for sleep -When necessary Ativan and Haldol for agitation/aggression. -Labs: Prolactin level elevated at 40 -SW on board for discharge planning. Encouraged the patient to participate in milieu. Anticipate discharge back home with sister tomorrow
[2024-09-07 12:13] LABS: Glucose,Whole Blood 69 mg/dL (70-110)
[2024-09-07 12:33] LABS: Glucose,Whole Blood 123 mg/dL (70-110)
[2024-09-07 17:33] LABS: Glucose,Whole Blood 357 mg/dL (70-110)
[2024-09-07 19:23] LABS: Glucose,Whole Blood 41 mg/dL (70-110)
[2024-09-07] MEDS ORDERED: DEXTROSE 50% SYRINGE 50 ML IVP PRN ×4 (19:37)
[2024-09-07 19:41] LABS: Glucose,Whole Blood 112 mg/dL (70-110)
[2024-09-07 20:03] LABS: Glucose,Whole Blood 103 mg/dL (70-110)
[2024-09-07] MEDS: MELATONIN 3 MG TABLET PO SCH (20:26)
[2024-09-07 20:46] LABS: Glucose,Whole Blood 137 mg/dL (70-110)
[2024-09-08 02:53] LABS: Glucose,Whole Blood 103 mg/dL (70-110)
[2024-09-08 07:52] LABS: Glucose,Whole Blood 184 mg/dL (70-110)
--- NOTE | 2024-09-08 11:34 | P.DS ---
Providers Date of admission: 09/02/24 19:07 Expected date of discharge: 09/08/24 Attending physician: Danika Ruth MD Consults: 09/02/24 19:23 Consult Physician Routine Consulting Provider: Loree Physician Consult Reason/Comments: H&P, Increased Blood pressure, Diabetes meds. Do you want consulting provider notified?: Yes Primary care physician: Stated None - Discharge Diagnosis(es) (1) Schizophrenia Current Visit: Yes Status: Acute Priority: High (2) Cannabis use disorder Current Visit: Yes Status: Acute Priority: Medium (3) Hyperprolactinemia Current Visit: Yes Status: Acute Priority: Medium Hospital Course: Admission HPI: Admission note was completed by advertising copywriter "Patient presented to the hospital with delusional thoughts and disorganization. EPS note states, "Pt was brought in by police. Pt was non complaint with her treatment and medications. Pt is on an active order until 01/10/25. Pt was supposed to get her Haldol IM injection but her BP was too high and she refused to seek treatment for BP. [facility] reached out and she was "tangential, scattered and agitates". Atul family expressed to [facility] their concern for pt d/t her irritation, agitation, and delusions. Pt is not caring for her health or safety. Police and [facility] were contacted to see pt at her home this morning, 09/02 and during that time she was aggressive with police and making delusional statements about "Faith juices" and she was trying to expose herself to [facility] staff. Pt was not making sense and irritable. [facility] recommended inpatient treatment. Pt was restrainted in the ER upon admission and was medicated. Pts BP was being monitored and brought down prior to assessment. Pt was tired and not willing to answer all of this RN's questions. She denies SI, HI. Pt was saying that she never seen [facility] today and that she is here for renal failure and her iron is low. Pt was vague and irritable. Pt does not have insight into her mental health. Pt is a current risk to self and others. When asked about drugs or etoh pt would not answer. Pts bal <10. UDS + benzos and mj". Patient seen and evaluated on the unit and was agreeable with speaking to advertising copywriter in office. She of note was very disorganized and tangential during conversation, poor historian. She states she lives with her sister however her sister will be leaving soon and so she needs to be discharged so she can return with her. She states her father was the one who brought her to the hospital however was unaware of the reasons why. She was able to state that she is on a court order with an expiration date for December 2024 and that she must take the Haldol injections. She states her blood pressure was elevated so she was unable to take it however she states she did receive a Haldol shot yesterday in the ED, per chart review this was Haldol 5 IM. There is evidence of flight of ideas, disorganized and illogical thoughts. Patient states she works nights and is often up with God, seeing the stars. Patient then states she is suffering from for body arthritis pain. Patient states she has been able to speak her mind with [facility] finally and she was aware of the medications she was taking, fixated on her current medications. Patient labile during interview, as she will go from crying to being upset but is redirectable. Patient denies any suicidal or homicidal ideations intent or plan. At this time patient denies any auditory or visual hallucinations. Patient was agreeable with getting Haldol decanoate shot today with restarting Tegretol for mood stabilization." Hospital course: Upon admission to the unit patient was already on a court order with an expiration date for 12/2024. Patient initially was disorganized with flight of ideas however later became more linear and social on the unit. Patient got along well with other patients on the unit and followed unit protocol. Patient was compliant with the medications and denied any side effects throughout hospital course. Patient was given Haldol decanoate 100 mg IM on 09/03/2024 with the next being due on 10/01/2024. Carbamazepine was resumed at 200 mg twice daily for mood stabilization, trazodone increased to 100 mg at bedtime for insomnia, melatonin 6 mg at bedtime for insomnia and Abilify 2.5 mg daily for hyperprolactinemia. Patient spoke of her stressors and engaged in therapy both group and individual. Patient was also seen by medical team for history and physical exam. Throughout the course of the hospitalization patient gradually improved with regards to mood, anxiety, sleep and returned back to their baseline level of functioning. On the day of discharge patient denied any suicidal or homicidal ideations intent or plan denied any auditory or visual hallucinations. The patient denied any access to guns or weapons. Patient denied any paranoia and did not endorse any delusions. Patient does not have a significant history of s ubstance abuse and was counseled on abstaining from all substances including alcohol and marijuana. Patient was also counseled on the medications and need for regular compliance and was encouraged to follow-up with their outpatient appointment for mental health and also for primary care. Patient will be discharged to nursing home, resources given, as staff was unable to reach patient's sister to confirm that she can return home with her. Patient to follow-up with [facility]. Mental status exam: General Appearance: Patient appears to be stated age is alert, pleasant, and cooperative. Patient is in no acute distress and has improved hygiene and grooming Behavior: Patient is calmly seated without any agitated behavior. Speech: Patient's speech is fluent and nonpressured. Mood/Affect: Patient reports their mood is "good", affect is congruent and euthymic. Suicidality/Homicidality: Patient denies having any suicidal or homicidal ideation intent or plan. Perceptions: Patient denies any auditory or visual hallucinations. Though content/process: There is no evidence of any delusional thought content and thought process is linear and goal-directed. More future oriented Memory and concentration: AOX3, grossly intact for the purposes of this session. Can spell "WORLD" backwards correctly. Judgment and insight: improved with guarded prognosis Impression: Schizophrenia Cannabis use disorder Hyperprolactinemia Plan: -Continue with discharge today as patient has improved and stabilized psychiatrically and is not currently an imminent threat to themself and/or others. -Continue medications: Haldol decanoate 100 mg IM every 4 weeks, last given on 09/03/2024 next 08/01/25, Tegretol 200 mg twice daily, trazodone 100 mg at bedtime, Abilify 2.5 mg daily, melatonin 6 mg at bedtime -Patient was counseled on the need for medication compliance and appropriate follow-up at mental health and also primary care for medical issues. Patient verbalized understanding and agreed. -Social work to [help coordinate patients discharge today. also to ensure safe home environment that guns/weapons are either removed from the home or locked away. Social work also to arrange for patients follow up appointments with [facility] for psychiatric care along with follow up with primary care provider. -Patient counseled on abstaining from recreational drugs and marijuana and alcohol. Was informed/educated on the adverse effects on their physical and mental health. Patient verbally agreed and understood. -Patient was instructed to return to the hospital or seek immediate medical care if their psychiatric or medical symptoms do worsen or reoccur. Abnormal Labs 09/02/24 09/02/24 09/02/24 12:11 12:11 14:07 Hgb 11.2 L Sodium 133 L Carbon Dioxide 20 L Glucose 247 H POC Glucose (mg/dL) Hemoglobin A1c Prolactin Urine Protein Urine Glucose (UA) Urine Ketones Carbamazepine U Benzodiazepines Scrn Detected H U Marijuana (THC) Screen Detected H 09/02/24 09/02/24 09/03/24 18:20 19:26 07:36 Hgb Sodium Carbon Dioxide Glucose POC Glucose (mg/dL) 235 H Hemoglobin A1c 11.6 H Prolactin Urine Protein Trace H Urine Glucose (UA) 4+ H Urine Ketones 1+ H Carbamazepine U Benzodiazepines Scrn U Marijuana (THC) Screen 09/03/24 09/03/24 09/03/24 07:36 07:53 13:05 Hgb Sodium Carbon Dioxide Glucose POC Glucose (mg/dL) 217 H 288 H Hemoglobin A1c Prolactin Urine Protein Urine Glucose (UA) Urine Ketones Carbamazepine 2.5 L U Benzodiazepines Scrn U Marijuana (THC) Screen 09/03/24 09/03/24 09/04/24 17:40 20:33 01:15 Hgb Sodium Carbon Dioxide Glucose POC Glucose (mg/dL) 418 H 212 H 204 H Hemoglobin A1c Prolactin Urine Protein Urine Glucose (UA) Urine Ketones Carbamazepine U Benzodiazepines Scrn U Marijuana (THC) Screen 09/04/24 09/04/24 09/04/24 03:50 07:51 12:44 Hgb Sodium Carbon Dioxide Glucose POC Glucose (mg/dL) 159 H 177 H 230 H Hemoglobin A1c Prolactin Urine Protein Urine Glucose (UA) Urine Ketones Carbamazepine U Benzodiazepines Scrn U Marijuana (THC) Screen 09/04/24 09/04/24 09/05/24 17:52 20:23 07:51 Hgb Sodium Carbon Dioxide Glucose POC Glucose (mg/dL) 189 H 149 H 129 H Hemoglobin A1c Prolactin Urine Protein Urine Glucose (UA) Urine Ketones Carbamazepine U Benzodiazepines Scrn U Marijuana (THC) Screen 09/05/24 09/05/24 09/05/24 10:32 12:41 15:26 Hgb Sodium Carbon Dioxide Glucose POC Glucose (mg/dL) 239 H 66 L Hemoglobin A1c Prolactin 40.200 H Urine Protein Urine Glucose (UA) Urine Ketones Carbamazepine U Benzodiazepines Scrn U Marijuana (THC) Screen 09/05/24 09/05/24 09/05/24 15:48 17:38 20:08 Hgb Sodium Carbon Dioxide Glucose POC Glucose (mg/dL) 186 H 167 H 210 H Hemoglobin A1c Prolactin Urine Protein Urine Glucose (UA) Urine Ketones Carbamazepine U Benzodiazepines Scrn U Marijuana (THC) Screen 09/05/24 09/06/24 09/06/24 23:15 07:57 12:37 Hgb Sodium Carbon Dioxide Glucose POC Glucose (mg/dL) 52 L 173 H 203 H Hemoglobin A1c Prolactin Urine Protein Urine Glucose (UA) Urine Ketones Carbamazepine U Benzodiazepines Scrn U Marijuana (THC) Screen 09/06/24 09/06/24 09/07/24 17:40 19:48 07:56 Hgb Sodium Carbon Dioxide Glucose POC Glucose (mg/dL) 255 H 160 H 175 H Hemoglobin A1c Prolactin Urine Protein Urine Glucose (UA) Urine Ketones Carbamazepine U Benzodiazepines Scrn U Marijuana (THC) Screen 09/07/24 09/07/24 09/07/24 12:11 12:30 17:31 Hgb Sodium Carbon Dioxide Glucose POC Glucose (mg/dL) 69 L 123 H 357 H Hemoglobin A1c Prolactin Urine Protein Urine Glucose (UA) Urine Ketones Carbamazepine U Benzodiazepines Scrn U Marijuana (THC) Screen 09/07/24 09/07/24 09/07/24 19:22 19:40 20:44 Hgb Sodium Carbon Dioxide Glucose POC Glucose (mg/dL) 41 L* 112 H 137 H Hemoglobin A1c Prolactin Urine Protein Urine Glucose (UA) Urine Ketones Carbamazepine U Benzodiazepines Scrn U Marijuana (THC) Screen 09/08/24 07:50 Hgb Sodium Carbon Dioxide Glucose POC Glucose (mg/dL) 184 H Hemoglobin A1c Prolactin Urine Protein Urine Glucose (UA) Urine Ketones Carbamazepine U Benzodiazepines Scrn U Marijuana (THC) Screen Vital Signs Temp 98.1 F 09/08/24 06:15 Pulse 73 09/08/24 06:15 Resp 16 09/08/24 06:15 BP 137/96 09/08/24 06:15 Pulse Ox 100 09/08/24 06:15 FiO2 Allergies Allergy/AdvReac Type Severity Reaction Status Date / Time codeine Allergy Itching Verified 09/03/24 10:00 lisinopril Allergy Anaphylaxis Verified 09/03/24 09:52 insulin detemir AdvReac Unknown Verified 09/03/24 10:00 [From Levemir U-100 Insulin] Penicillins AdvReac Diarrhea Verified 09/03/24 10:00 Patient Condition at Discharge: Stable Plan - Discharge Summary Discharge Rx Participant: No New Discharge Prescriptions: New Loratadine [Claritin] 10 mg PO DAILY tab traZODone HCL [Desyrel] 100 mg PO HS 30 Days #30 tab Melatonin 6 mg PO HS 30 Days #60 tab Naproxen [Naprosyn] 500 mg PO BID tab INSULIN ASPART (NovoLOG) [NovoLOG (formulary)] 0 unit SQ ACHS each Haloperidol Decanoate [Haldol D] 100 mg IM QMONTHLY #1 each ARIPiprazole [Abilify] 2.5 mg PO DAILY 30 Days #15 tab diphenhydrAMINE [Benadryl] 50 mg PO HS PRN 30 Days #60 cap PRN Reason: Allergy Symptoms carBAMazepine [TEGretol] 200 mg PO BID 30 Days #60 tab Continue carBAMazepine 200 mg PO BID amLODIPine [Norvasc] 5 mg PO DAILY glipiZIDE [Glucotrol] 5 mg PO AC-BID Naproxen [EC-Naprosyn] 500 mg PO BID Furosemide [Lasix] 20 mg PO DAILY Haloperidol Decanoate [Haldol D] 100 mg IM Q28D #1 each Insulin Glargine,Hum.rec.anlog [Lantus Solostar Pen] 10 units SQ DAILY Discontinued Melatonin 3 mg PO HS PRN PRN Reason: SLEEP Finerenone [Kerendia] 10 mg PO DAILY Discharge Medication List Furosemide [Lasix] 20 mg PO DAILY 09/02/24 [History] Insulin Glargine,Hum.rec.anlog [Lantus Solostar Pen] 10 units SQ DAILY 09/02/24 [History] Naproxen [EC-Naprosyn] 500 mg PO BID 09/02/24 [History] amLODIPine [Norvasc] 5 mg PO DAILY 09/02/24 [History] carBAMazepine 200 mg PO BID 09/02/24 [History] glipiZIDE [Glucotrol] 5 mg PO AC-BID 09/02/24 [History] ARIPiprazole [Abilify] 2.5 mg PO DAILY 30 Days #15 tab 09/08/24 [Rx] Haloperidol Decanoate [Haldol D] 100 mg IM Q28D #1 each 09/08/24 [Rx] Haloperidol Decanoate [Haldol D] 100 mg IM QMONTHLY #1 each 09/08/24 [Rx] INSULIN ASPART (NovoLOG) [NovoLOG (formulary)] 0 unit SQ ACHS each 09/08/24 [Rx] Loratadine [Claritin] 10 mg PO DAILY tab 09/08/24 [Rx] Melatonin 6 mg PO HS 30 Days #60 tab 09/08/24 [Rx] Naproxen [Naprosyn] 500 mg PO BID tab 09/08/24 [Rx] carBAMazepine [TEGretol] 200 mg PO BID 30 Days #60 tab 09/08/24 [Rx] diphenhydrAMINE [Benadryl] 50 mg PO HS PRN 30 Days #60 cap 09/08/24 [Rx] traZODone HCL [Desyrel] 100 mg PO HS 30 Days #30 tab 09/08/24 [Rx] Follow up Appointment(s)/Referral(s): [facility] [Outside] - 09/14/24 10:00 am (09-14-24 at 10:00 with Garcia Espino 09-20-24 at 9:[address] Sanchez ) [facility] [NON-STAFF] - 1 Week Patient Instructions/Handouts: Schizophrenia (DC) Activity/Diet/Wound Care/Special Instructions: [facility] Discharge Info Avoid the use of street drugs and alcohol. Take all medications as prescribed. When you are in need of refills on your medications, please contact your outpatient medical provider and/or outpatient psychiatrist. Please go to your scheduled outpatient appointments for aftercare treatment. If symptoms return or become worse, call the crisis line at or and/or visit the nearest emergency room for assistance. National Suicide and Crisis Lifeline - call or text 988 Discharge Disposition: HOME SELF-CARE
[2024-09-08 12:34] LABS: Glucose,Whole Blood 160 mg/dL (70-110)
[2024-09-08 17:58] LABS: Glucose,Whole Blood 335 mg/dL (70-110)
[2024-09-08 20:06] LABS: Glucose,Whole Blood 250 mg/dL (70-110)
--- NOTE | 2024-09-08 22:26 | P.PN ---
Progress Note - Text Progress Note Date: 09/08/24 Page received from the RN that the patient reported a cyst on her coccyx that was supposed to be removed but was not yet removed. Patient mentioned being on antibiotics prior to this admission. Patient was complaining of pain at the site and requested to be seen. On 06/04/24 patient was seen in the ED here at [facility]. At that visit she underwent Incision and Drainage of her pilonidal abscess. She also reported a history of pilonidal abscesses. Today 09/08/24, Patient was sleeping comfortably and was in no distress. She was seen at bedside. Upon asking consent for examination, she refused to be evaluated further. RN updated about this encounter. Please feel free to contact us with any further questions. Thank you.
[2024-09-09 06:50] VITALS: TEMP 97.8
[2024-09-09 08:05] LABS: Glucose,Whole Blood 138 mg/dL (70-110)
[2024-09-09 08:41] VITALS: BP 146/97; PULSE 76
--- NOTE | 2024-09-09 10:35 | P.PN ---
Progress Note - Text Progress Note Date: 09/09/24 Interval History: Patient was seen in her room and was directable and agreeable to speak with wr iter in the office. She reports feeling more calm yet is still upset at her sister. He states her sister has been going back and forth with the treatment team and her regarding excepting her back or not and she expresses frustration regarding this miscommunication. Patient was eventually able to accept her sister's help and stay with her at least temporarily while she saves up her money to eventually get a motel. She states she wishes to speak to her sister [id number] when she picks her up tomorrow. Patient talked a bit about her family and how since she is the youngest her siblings often are over bearing at times. Patient otherwise has been tending to her ADLs. She reports some issues with sleep overnight. At this time patient denies any suicidal or homicidal ideations, intent or plan. Patient denies any auditory, visual hallucinations and denies any paranoia or delusions. Patient has been compliant with meds. Mental Status Exam: General Appearance: Patient appears to be stated age is alert, directable, and cooperative. Patient has medium length black hair pulled into a ponytail Behavior: Patient is calmly seated without any agitated behavior. Speech: Patient's speech is fluent and nonpressured. Mood/Affect: Mood is improving mildly, affect is congruent and constricted. Suicidality/Homicidality: Patient denies having any suicidal or homicidal ideation intent or plan. Perceptions: Patient denies any visual hallucinations and denies any auditory hallucinations Though content/process: There is no evidence of any delusional thought content and thought process is linear and goal-directed. Memory and concentration: AOX3, grossly intact for the purposes of this session Judgment and insight: Improving mildly Assessment Schizophrenia Cannabis use disorder Hyperprolactinemia Plan: -Patient continues to meet criteria for inpatient psychiatric admission for symptom stabilization and safety. Patient has not signed adult voluntary form and medication consent and was placed in patient's chart. Patient currently on a court order with an expiration date for 12/2024 -Medications: Increase trazodone to 150 mg at bedtime for sleep and continue Tegretol 200 mg twice daily for mood stabilization, Abilify 2.5 mg daily for hyperprolactinemia, melatonin 6 mg at bedtime for sleep. Patient is also on Haldol decanoate 100 mg IM every 4 weeks, last given on 09/03/2024 next due on 10/01/2024 -When necessary Ativan and Haldol for agitation/aggression. -Labs: Prolactin level elevated at 40 -SW on board for discharge planning. Encouraged the patient to participate in milieu. Anticipate discharge back home with sister tomorrow
[2024-09-09 12:06] LABS: Glucose,Whole Blood 153 mg/dL (70-110)
[2024-09-09 12:39] LABS: Glucose,Whole Blood 140 mg/dL (70-110)
[2024-09-09 17:19] LABS: Glucose,Whole Blood 172 mg/dL (70-110)
[2024-09-09] MEDS: CALCIUM CARBONATE 500 MG CHEWABLE PO PRN (19:36)
[2024-09-09] MEDS: traZODone HCL 50 MG TAB PO SCH (21:12)
[2024-09-09 21:21] LABS: Glucose,Whole Blood 264 mg/dL (70-110)
[2024-09-10 04:39] LABS: Glucose,Whole Blood 197 mg/dL (70-110)
[2024-09-10 07:45] LABS: Glucose,Whole Blood 252 mg/dL (70-110)
--- NOTE | 2024-09-10 10:11 | P.DS ---
Providers Date of admission: 09/02/24 19:07 Expected date of discharge: 09/10/24 Attending physician: Danika Ruth MD Consults: 09/02/24 19:23 Consult Physician Routine Consulting Provider: Loree Physician Consult Reason/Comments: H&P, Increased Blood pressure, Diabetes meds. Do you want consulting provider notified?: Yes Primary care physician: Stated None - Discharge Diagnosis(es) (1) Schizophrenia Current Visit: Yes Status: Acute Priority: High (2) Cannabis use disorder Current Visit: Yes Status: Acute Priority: Medium (3) Hyperprolactinemia Current Visit: Yes Status: Acute Priority: Medium Hospital Course: Admission HPI: Admission note was completed by internal communications writer "Patient presented to the hospital with delusional thoughts and disorganization. EPS note states, "Pt was brought in by police. Pt was non complaint with her treatment and medications. Pt is on an active order until 01/10/25. Pt was supposed to get her Haldol IM injection but her BP was too high and she refused to seek treatment for BP. [facility] reached out and she was "tangential, scattered and agitates". Atul family expressed to [facility] their concern for pt d/t her irritation, agitation, and delusions. Pt is not caring for her health or safety. Police and [facility] were contacted to see pt at her home this morning, 09/02 and during that time she was aggressive with police and making delusional statements about "Cheondoism juices" and she was trying to expose herself to [facility] staff. Pt was not making sense and irritable. [facility] recommended inpatient treatment. Pt was restrainted in the ER upon admission and was medicated. Pts BP was being monitored and brought down prior to assessment. Pt was tired and not willing to answer all of this RN's questions. She denies SI, HI. Pt was saying that she never seen [facility] today and that she is here for renal failure and her iron is low. Pt was vague and irritable. Pt does not have insight into her mental health. Pt is a current risk to self and others. When asked about drugs or etoh pt would not answer. Pts bal <10. UDS + benzos and mj". Patient seen and evaluated on the unit and was agreeable with speaking to internal communications writer in office. She of note was very disorganized and tangential during conversation, poor historian. She states she lives with her sister however her sister will be leaving soon and so she needs to be discharged so she can return with her. She states her father was the one who brought her to the hospital however was unaware of the reasons why. She was able to state that she is on a court order with an expiration date for December 2024 and that she must take the Haldol injections. She states her blood pressure was elevated so she was unable to take it however she states she did receive a Haldol shot yesterday in the ED, per chart review this was Haldol 5 IM. There is evidence of flight of ideas, disorganized and illogical thoughts. Patient states she works nights and is often up with God, seeing the stars. Patient then states she is suffering from for body arthritis pain. Patient states she has been able to speak her mind with [facility] finally and she was aware of the medications she was taking, fixated on her current medications. Patient labile during interview, as she will go from crying to being upset but is redirectable. Patient denies any suicidal or homicidal ideations intent or plan. At this time patient denies any auditory or visual hallucinations. Patient was agreeable with getting Haldol decanoate shot today with restarting Tegretol for mood stabilization." Hospital course: Upon admission to the unit patient was already on a court order with an expiration date for 12/2024. Patient initially was disorganized with flight of ideas however later became more linear and social on the unit. Patient got along well with other patients on the unit and followed unit protocol. Patient was compliant with the medications and denied any side effects throughout hospital course. Patient was given Haldol decanoate 100 mg IM on 09/03/2024 with the next being due on 10/01/2024. Carbamazepine was resumed at 200 mg twice daily for mood stabilization, trazodone increased to 100 mg at bedtime for insomnia, melatonin 6 mg at bedtime for insomnia and Abilify 2.5 mg daily for hyperprolactinemia. Patient spoke of her stressors and engaged in therapy both group and individual. Patient was also seen by medical team for history and physical exam. Throughout the course of the hospitalization patient gradually improved with regards to mood, anxiety, sleep and returned back to their baseline level of functioning. On the day of discharge patient denied any suicidal or homicidal ideations intent or plan denied any auditory or visual hallucinations. The patient denied any access to guns or weapons. Patient denied any paranoia and did not endorse any delusions. Patient does not have a significant history of substance abuse and was counseled on abstaining from all substances including alcohol and marijuana. Patient was also counseled on the medications and need for regular compliance and was encouraged to follow-up with their outpatient appointment for mental health and also for primary care. Patient will be discharged back to sisters who confirmed no firearms at home. Patient to follow-up with [facility]. Mental status exam: General Appearance: Patient appears to be stated age is alert, pleasant, and cooperative. Patient is in no acute distress and has improved hygiene and grooming Behavior: Patient is calmly seated without any agitated behavior. Speech: Patient's speech is fluent and nonpressured. Mood/Affect: Patient reports their mood is "good", affect is congruent and euthymic. Suicidality/Homicidality: Patient denies having any suicidal or homicidal ideation intent or plan. Perceptions: Patient denies any auditory or visual hallucinations. Though content/process: There is no evidence of any delusional thought content and thought process is linear and goal-directed. More future oriented Memory and concentration: AOX3, grossly intact for the purposes of this session. Can spell "WORLD" backwards correctly. Judgment and insight: improved with guarded prognosis Impression: Schizophrenia Cannabis use disorder Hyperprolactinemia Plan: -Continue with discharge today as patient has improved and stabilized psychiatrically and is not currently an imminent threat to themself and/or others. -Continue medications: Haldol decanoate 100 mg IM every 4 weeks, last given on 09/03/2024 next 08/01/25, Tegretol 200 mg twice daily, trazodone 150 mg at bedtime, Abilify 2.5 mg daily, melatonin 6 mg at bedtime -Patient was counseled on the need for medication compliance and appropriate fol low-up at mental health and also primary care for medical issues. Patient verbalized understanding and agreed. -Social work to help coordinate patients discharge today. also to ensure safe home environment that guns/weapons are either removed from the home or locked away. Social work also to arrange for patients follow up appointments with [facility] for psychiatric care along with follow up with primary care provider. -Patient counseled on abstaining from recreational drugs and marijuana and alcohol. Was informed/educated on the adverse effects on their physical and mental health. Patient verbally agreed and understood. -Patient was instructed to return to the hospital or seek immediate medical care if their psychiatric or medical symptoms do worsen or reoccur. Abnormal Labs 09/02/24 09/02/24 09/02/24 12:11 12:11 14:07 Hgb 11.2 L Sodium 133 L Carbon Dioxide 20 L Glucose 247 H POC Glucose (mg/dL) Hemoglobin A1c Prolactin Urine Protein Urine Glucose (UA) Urine Ketones Carbamazepine U Benzodiazepines Scrn Detected H U Marijuana (THC) Screen Detected H 09/02/24 09/02/24 09/03/24 18:20 19:26 07:36 Hgb Sodium Carbon Dioxide Glucose POC Glucose (mg/dL) 235 H Hemoglobin A1c 11.6 H Prolactin Urine Protein Trace H Urine Glucose (UA) 4+ H Urine Ketones 1+ H Carbamazepine U Benzodiazepines Scrn U Marijuana (THC) Screen 09/03/24 09/03/24 09/03/24 07:36 07:53 13:05 Hgb Sodium Carbon Dioxide Glucose POC Glucose (mg/dL) 217 H 288 H Hemoglobin A1c Prolactin Urine Protein Urine Glucose (UA) Urine Ketones Carbamazepine 2.5 L U Benzodiazepines Scrn U Marijuana (THC) Screen 09/03/24 09/03/24 09/04/24 17:40 20:33 01:15 Hgb Sodium Carbon Dioxide Glucose POC Glucose (mg/dL) 418 H 212 H 204 H Hemoglobin A1c Prolactin Urine Protein Urine Glucose (UA) Urine Ketones Carbamazepine U Benzodiazepines Scrn U Marijuana (THC) Screen 09/04/24 09/04/24 09/04/24 03:50 07:51 12:44 Hgb Sodium Carbon Dioxide Glucose POC Glucose (mg/dL) 159 H 177 H 230 H Hemoglobin A1c Prolactin Urine Protein Urine Glucose (UA) Urine Ketones Carbamazepine U Benzodiazepines Scrn U Marijuana (THC) Screen 09/04/24 09/04/24 09/05/24 17:52 20:23 07:51 Hgb Sodium Carbon Dioxide Glucose POC Glucose (mg/dL) 189 H 149 H 129 H Hemoglobin A1c Prolactin Urine Protein Urine Glucose (UA) Urine Ketones Carbamazepine U Benzodiazepines Scrn U Marijuana (THC) Screen 09/05/24 09/05/24 09/05/24 10:32 12:41 15:26 Hgb Sodium Carbon Dioxide Glucose POC Glucose (mg/dL) 239 H 66 L Hemoglobin A1c Prolactin 40.200 H Urine Protein Urine Glucose (UA) Urine Ketones Carbamazepine U Benzodiazepines Scrn U Marijuana (THC) Screen 09/05/24 09/05/24 09/05/24 15:48 17:38 20:08 Hgb Sodium Carbon Dioxide Glucose POC Glucose (mg/dL) 186 H 167 H 210 H Hemoglobin A1c Prolactin Urine Protein Urine Glucose (UA) Urine Ketones Carbamazepine U Benzodiazepines Scrn U Marijuana (THC) Screen 09/05/24 09/06/24 09/06/24 23:15 07:57 12:37 Hgb Sodium Carbon Dioxide Glucose POC Glucose (mg/dL) 52 L 173 H 203 H Hemoglobin A1c Prolactin Urine Protein Urine Glucose (UA) Urine Ketones Carbamazepine U Benzodiazepines Scrn U Marijuana (THC) Screen 09/06/24 09/06/24 09/07/24 17:40 19:48 07:56 Hgb Sodium Carbon Dioxide Glucose POC Glucose (mg/dL) 255 H 160 H 175 H Hemoglobin A1c Prolactin Urine Protein Urine Glucose (UA) Urine Ketones Carbamazepine U Benzodiazepines Scrn U Marijuana (THC) Screen 09/07/24 09/07/24 09/07/24 12:11 12:30 17:31 Hgb Sodium Carbon Dioxide Glucose POC Glucose (mg/dL) 69 L 123 H 357 H Hemoglobin A1c Prolactin Urine Protein Urine Glucose (UA) Urine Ketones Carbamazepine U Benzodiazepines Scrn U Marijuana (THC) Screen 09/07/24 09/07/24 09/07/24 19:22 19:40 20:44 Hgb Sodium Carbon Dioxide Glucose POC Glucose (mg/dL) 41 L* 112 H 137 H Hemoglobin A1c Prolactin Urine Protein Urine Glucose (UA) Urine Ketones Carbamazepine U Benzodiazepines Scrn U Marijuana (THC) Screen 09/08/24 09/08/24 09/08/24 07:50 12:32 17:43 Hgb Sodium Carbon Dioxide Glucose POC Glucose (mg/dL) 184 H 160 H 335 H Hemoglobin A1c Prolactin Urine Protein Urine Glucose (UA) Urine Ketones Carbamazepine U Benzodiazepines Scrn U Marijuana (THC) Screen 09/08/24 09/09/24 09/09/24 20:04 08:03 12:04 Hgb Sodium Carbon Dioxide Glucose POC Glucose (mg/dL) 250 H 138 H 153 H Hemoglobin A1c Prolactin Urine Protein Urine Glucose (UA) Urine Ketones Carbamazepine U Benzodiazepines Scrn U Marijuana (THC) Screen 09/09/24 09/09/24 09/09/24 12:37 17:18 21:11 Hgb Sodium Carbon Dioxide Glucose POC Glucose (mg/dL) 140 H 172 H 264 H Hemoglobin A1c Prolactin Urine Protein Urine Glucose (UA) Urine Ketones Carbamazepine U Benzodiazepines Scrn U Marijuana (THC) Screen 09/10/24 09/10/24 04:37 07:43 Hgb Sodium Carbon Dioxide Glucose POC Glucose (mg/dL) 197 H 252 H Hemoglobin A1c Prolactin Urine Protein Urine Glucose (UA) Urine Ketones Carbamazepine U Benzodiazepines Scrn U Marijuana (THC) Screen Allergies Allergy/AdvReac Type Severity Reaction Status Date / Time codeine Allergy Itching Verified 09/03/24 10:00 lisinopril Allergy Anaphylaxis Verified 09/03/24 09:52 insulin detemir AdvReac Unknown Verified 09/03/24 10:00 [From Levemir U-100 Insulin] Penicillins AdvReac Diarrhea Verified 09/03/24 10:00 Vital Signs Temp 97.8 F 09/09/24 05:58 Pulse 76 09/09/24 08:41 Resp 16 09/09/24 05:58 BP 146/97 09/09/24 08:41 Pulse Ox 100 09/09/24 05:58 FiO2 Patient Condition at Discharge: Stable Plan - Discharge Summary Discharge Rx Participant: No New Discharge Prescriptions: New Loratadine [Claritin] 10 mg PO DAILY tab traZODone HCL [Desyrel] 100 mg PO HS 30 Days #30 tab Melatonin 6 mg PO HS 30 Days #60 tab Naproxen [Naprosyn] 500 mg PO BID tab INSULIN ASPART (NovoLOG) [NovoLOG (formulary)] 0 unit SQ ACHS each Haloperidol Decanoate [Haldol D] 100 mg IM QMONTHLY #1 each traZODone HCL [Desyrel] 50 mg PO HS 30 Days #30 tab ARIPiprazole [Abilify] 2.5 mg PO DAILY 30 Days #15 tab diphenhydrAMINE [Benadryl] 50 mg PO HS PRN 30 Days #60 cap PRN Reason: Allergy Symptoms carBAMazepine [TEGretol] 200 mg PO BID 30 Days #60 tab Continue carBAMazepine 200 mg PO BID amLODIPine [Norvasc] 5 mg PO DAILY glipiZIDE [Glucotrol] 5 mg PO AC-BID Naproxen [EC-Naprosyn] 500 mg PO BID Furosemide [Lasix] 20 mg PO DAILY Haloperidol Decanoate [Haldol D] 100 mg IM Q28D #1 each Insulin Glargine,Hum.rec.anlog [Lantus Solostar Pen] 10 units SQ DAILY Discontinued Melatonin 3 mg PO HS PRN PRN Reason: SLEEP Finerenone [Kerendia] 10 mg PO DAILY Discharge Medication List Furosemide [Lasix] 20 mg PO DAILY 09/02/24 [History] Insulin Glargine,Hum.rec.anlog [Lantus Solostar Pen] 10 units SQ DAILY 09/02/24 [History] Naproxen [EC-Naprosyn] 500 mg PO BID 09/02/24 [History] amLODIPine [Norvasc] 5 mg PO DAILY 09/02/24 [History] carBAMazepine 200 mg PO BID 09/02/24 [History] glipiZIDE [Glucotrol] 5 mg PO AC-BID 09/02/24 [History] ARIPiprazole [Abilify] 2.5 mg PO DAILY 30 Days #15 tab 09/08/24 [Rx] Haloperidol Decanoate [Haldol D] 100 mg IM Q28D #1 each 09/08/24 [Rx] Haloperidol Decanoate [Haldol D] 100 mg IM QMONTHLY #1 each 09/08/24 [Rx] INSULIN ASPART (NovoLOG) [NovoLOG (formulary)] 0 unit SQ ACHS each 09/08/24 [Rx] Loratadine [Claritin] 10 mg PO DAILY tab 09/08/24 [Rx] Melatonin 6 mg PO HS 30 Days #60 tab 09/08/24 [Rx] Naproxen [Naprosyn] 500 mg PO BID tab 09/08/24 [Rx] carBAMazepine [TEGretol] 200 mg PO BID 30 Days #60 tab 09/08/24 [Rx] diphenhydrAMINE [Benadryl] 50 mg PO HS PRN 30 Days #60 cap 09/08/24 [Rx] traZODone HCL [Desyrel] 100 mg PO HS 30 Days #30 tab 09/08/24 [Rx] traZODone HCL [Desyrel] 50 mg PO HS 30 Days #30 tab 09/10/24 [Rx] Follow up Appointment(s)/Referral(s): [facility] [Outside] - 09/14/24 10:00 am (09-14-24 at 10:00 with Garcia Espino 09-20-24 at 9:[address] Sanchez ) [facility] [NON-STAFF] - 1 Week Patient Instructions/Handouts: Bipolar Disorder (DC), Schizophrenia (DC) Activity/Diet/Wound Care/Special Instructions: [facility] Discharge Info Avoid the use of street drugs and alcohol. Take all medications as prescribed. When you are in need of refills on your medications, please contact your outpatient medical provider and/or outpatient psychiatrist. Please go to your scheduled outpatient appointments for aftercare treatment. If symptoms return or become worse, call the crisis line at or and/or visit the nearest emergency room for assistance. National Suicide and Crisis Lifeline - call or text 472 Discharge Disposition: HOME SELF-CARE
== END 2024-09-10 11:35 | disposition home or self-care (01) | DRG 885 ==
LOC: EC 10:34 → 3MHU 19:07
PROVIDERS: ADMIT Psychiatry & Neurology Psychiatry; ATTEND Psychiatry & Neurology Psychiatry
DX: F20.9 Schizophrenia, unspecified (principal); E22.1 Hyperprolactinemia; E87.1 Hypo-osmolality and hyponatremia; F12.10 Cannabis abuse, uncomplicated; F17.290 Nicotine dependence, other tobacco product, uncomplicated; F41.9 Anxiety disorder, unspecified; G47.00 Insomnia, unspecified; I10 Essential (primary) hypertension; M19.90 Unspecified osteoarthritis, unspecified site; Z79.4 Long term (current) use of insulin; Z79.84 Long term (current) use of oral hypoglycemic drugs; Z79.899 Other long term (current) drug therapy; Z91.148 Patient's other noncompliance with medication regimen for other reason; Z11.52 Encounter for screening for COVID-19; Z28.310 Unvaccinated for COVID-19; Z28.21 Immunization not carried out because of patient refusal; Z98.84 Bariatric surgery status; Z88.5 Allergy status to narcotic agent; Z88.0 Allergy status to penicillin; Z88.8 Allergy status to other drugs, medicaments and biological substances; Z71.3 Dietary counseling and surveillance
CPT/HCPCS: 36415; 80053; 80156; 80306; 80320; 81003; 81025; 83036; 84146; 84443; 84681; 85025; 86341; 87635; 96372; 99285